=== PATIENT | male | born 1980 | race Caucasian/White ===

== ENCOUNTER 2022-12-31 21:23 | Emergency (ER) | payer BC, OTHER ==
[~2022-12-31] VITALS: Ht 142.2 cm; Wt 97.5 kg
[2022-12-31] MEDS ORDERED: CHLO25CA22 PO (21:56)
[2022-12-31 23:43] VITALS: BP 145/99; TEMP 98.4; O2SAT 95
== END 2022-12-31 23:44 | disposition home or self-care (01) ==
LOC: ER 21:30
DX: F10.139 Alcohol abuse with withdrawal, unspecified (principal); I10 Essential (primary) hypertension; E11.9 Type 2 diabetes mellitus without complications; Y90.9 Presence of alcohol in blood, level not specified